=== PATIENT | female | born 1945 | race Caucasian/White ===

== ENCOUNTER → 2016-11-17 | Outpatient (REF) ==
[~2016-11-17] MED LIST: AMBIEN 10MG10 MG PO; AMERGE; CELEBREX 200MG200 MG PO; CELEBREX50 MG PO; COLACE 100100 MG/CAP PO; CYMBALTA 20MG20 MG PO; CYMBALTA 30MG30 MG PO; CYMBALTA 60MG60 MG PO; ENABLEX15 MG PO; EPA1000 MG PO; GAVISCON F1 TAB.CHEW PO; LAMICTAL 100MG100 MG PO; LAMICTAL ODT50 MG PO; LASIX 40MG TABL40 MG PO; LEVOXYL0.1 MG PO; LYRICA 100MG C100 M1 PO; LYRICA 50MG CAP50 MG PO; LYRICA100 MG PO; MULTIVITAMIN FO1 CAP PO; NORCO 325 MG-7.1 TAB PO; NS 10ML VIAL 1010 ML IV; OXY IR5 MG PO; PRILOSEC 10MG C10 MG PO; PRILOSEC 20MG20 MG PO; PRILOSEC10 MG; PRINIVIL20 MG PO; ROXICODONE 55 MG/TAB; SYNTHROID0.1 MG/TAB PO; SYNTHROID0.125 MG/T PO; TEFLARO 60600 MG/VIA IV; TIAZAC120 MG PO; TYLENOL 325MG325 MG PO; TYLENOL PM EXTR1 TA1 PO; [UNRECOGNIZED DRUG - CODE] IV
== END ==
LOC: ZLAB.WCH 11:06
DX: Z01.89 Encounter for other specified special examinations (principal)

== ENCOUNTER → 2017-03-08 | Outpatient (REF) | LOC: ZLAB.WCH 11:26 | DX: Z01.89 Encounter for other specified special examinations (principal) ==

== ENCOUNTER 2017-07-07 09:17 | Outpatient (CLI) | payer MEDICARE, OTHER ==
[~2017-07-07] VITALS: Ht 157.5 cm; Wt 118.6 kg
[~2017-07-07 09:17] MED LIST changes: -CYMBALTA 20MG20 MG PO; -LASIX 40MG TABL40 MG PO
[2017-07-07 10:32] VITALS: BP 151/54; PULSE 80; TEMP 97.3
[2017-07-07] MEDS ORDERED: CYMBALTA 20MG20 MG PO (11:01)
[2017-07-07] MEDS ORDERED: LASIX 40MG TABL40 MG PO (11:03)
== END 2017-07-07 11:00 | disposition home or self-care (01) ==
LOC: EUO 09:17
DX: L03.116 Cellulitis of left lower limb (principal); R06.02 Shortness of breath; R79.1 Abnormal coagulation profile
CPT/HCPCS: C1751; Q9967

== ENCOUNTER → 2017-07-08 | Outpatient (REF) ==
[~2017-07-08] MED LIST changes: +CYMBALTA 20MG20 MG PO; +LASIX 40MG TABL40 MG PO
== END ==
LOC: ZLAB.WCH 12:48
DX: Z01.89 Encounter for other specified special examinations (principal)

== ENCOUNTER → 2017-07-11 | Outpatient (REF) | LOC: ZAIV 06:00 | DX: Z02.89 Encounter for other administrative examinations (principal) ==

== ENCOUNTER → 2017-07-14 | Outpatient (CLI) | payer MEDICARE, OTHER | LOC: BHSO 09:58 | DX: F33.1 Major depressive disorder, recurrent, moderate (principal) ==

== ENCOUNTER → 2017-07-21 | Outpatient (REF) ==
[~2017-07-21] MED LIST changes: +AMERGE 2.5MG T2.5 MG PEG; +ASPIRIN 81M81 MG/TA2 PO; +BENADRYL25 M2 PO; +CEFEPIME2 GM/100 M IV; +CENTRUM 240 ML240 ML PO; -CYMBALTA 20MG20 MG PO; +DESENEX21 TOP; +DETROL LA4 PEG; +DITROPAN 5M5 MG/5 ML PO; +FIBERCON; +KEPPRA SUSP100 MG/ML PO; +LOVENOX 4040 MG/0.4 SQ; +MAG-OX 400400 MG/TAB PO; +MULTIVITAMIN1 CTB PO; +NORCO 325 MG-51 TAB PO; +NORCOELIX PO; +NORMAL SALINE F10 ML IV; +NORMAL SALINE FL5 ML IV; +NYSTATIN POWDER15 GM TOP; +PROTONIX I40 MG/VIAL IV; +PROTONIX40 MG/Pack PO; +PROZAC 20MG20 MG PO; +PROZAC 20MG4 MG/1 ML PO; +SLOW-MAG 6464 MG/TAB PEG; +SODIUM CHLORI1000 M1 IV; +TEMOVATE0.05% TP; +TYLENOL ELIX32 MG/M2 PO; +VANCOCIN H125 MG/CAP PEG; +VOLTAREN GEL 1%1 TU TP; +[UNRECOGNIZED DRUG - OTHER] TP
== END ==
LOC: ZLAB.WCH 21:00
DX: Z01.89 Encounter for other specified special examinations (principal)

== ENCOUNTER → 2017-07-23 | Outpatient (REF) ==
[~2017-07-23] MED LIST changes: -AMERGE 2.5MG T2.5 MG PEG; -ASPIRIN 81M81 MG/TA2 PO; -BENADRYL25 M2 PO; -CEFEPIME2 GM/100 M IV; -CENTRUM 240 ML240 ML PO; +CYMBALTA 20MG20 MG PO; -DESENEX21 TOP; -DETROL LA4 PEG; -DITROPAN 5M5 MG/5 ML PO; -FIBERCON; -KEPPRA SUSP100 MG/ML PO; -LOVENOX 4040 MG/0.4 SQ; -MAG-OX 400400 MG/TAB PO; -MULTIVITAMIN1 CTB PO; -NORCO 325 MG-51 TAB PO; -NORCOELIX PO; -NORMAL SALINE F10 ML IV; -NORMAL SALINE FL5 ML IV; -NYSTATIN POWDER15 GM TOP; -PROTONIX I40 MG/VIAL IV; -PROTONIX40 MG/Pack PO; -PROZAC 20MG20 MG PO; -PROZAC 20MG4 MG/1 ML PO; -SLOW-MAG 6464 MG/TAB PEG; -SODIUM CHLORI1000 M1 IV; -TEMOVATE0.05% TP; -TYLENOL ELIX32 MG/M2 PO; -VANCOCIN H125 MG/CAP PEG; -VOLTAREN GEL 1%1 TU TP; -[UNRECOGNIZED DRUG - OTHER] TP
== END ==
LOC: ZLAB.WCH 10:19
DX: Z01.89 Encounter for other specified special examinations (principal)

== ENCOUNTER → 2017-07-25 | Outpatient (REF) | LOC: ZLAB.WCH 10:35 | DX: Z01.89 Encounter for other specified special examinations (principal) ==

== ENCOUNTER → 2017-07-26 | Outpatient (REF) | LOC: ZLAB.WCH 11:05 | DX: Z01.89 Encounter for other specified special examinations (principal) ==

== ENCOUNTER → 2017-07-28 | Outpatient (REF) ==
[2017-07-28 19:12] LABS: VANCOMYCIN TROUGH 22.98 ug/mL (7.00-20.00)
[2017-07-28 19:45] LABS: CREATININE, serum 1.03 mg/dL (0.52-1.25)
== END ==
LOC: ZLAB.WCH 18:13
PROVIDERS: Nurse Practitioner Primary Care
DX: Z01.89 Encounter for other specified special examinations (principal)

== ENCOUNTER → 2017-07-31 | Outpatient (REF) | LOC: ZLAB.WCH 15:59 | DX: Z01.89 Encounter for other specified special examinations (principal) ==

== ENCOUNTER → 2017-08-03 | Outpatient (REF) ==
[2017-08-03 17:41] LABS: THYROID STIMULATING HORMONE 9.58 uIU/mL (0.465-4.680)
== END ==
LOC: ZLAB.WCH 15:44
DX: Z01.89 Encounter for other specified special examinations (principal)

== ENCOUNTER → 2017-10-02 | Outpatient (REF) | LOC: ZLAB.WCH 18:14 | DX: Z01.89 Encounter for other specified special examinations (principal) ==

== ENCOUNTER → 2018-01-26 | Outpatient (REF) ==
[2018-01-26 12:59] LABS: BASO # 0.1 (0.0-0.2); BASO % 0.6 % (0.0-2.0); EOS # 0.2 (0.0-0.7); EOS % 2.1 % (0-4.0); GRAN # 6.4 (1.4-6.5); GRAN % 75.4 % (42.2-75.2); LYMPH # 1.3 (1.2-3.4); LYMPH % 15.1 % (20.0-51.0); MEAN CELL VOLUME 86 fl (80.0-100.0); MEAN CORPUSCULAR HGB CONC 32 g/dl (33.0-37.0); MEAN PLATELET VOLUME 10.9 fl (7.4-10.4); MONO # 0.5 (0.1-0.6); MONO % 6.3 % (1.7-9.3); PLATELET COUNT 572 K/mm3 (130-400); RED BLOOD COUNT 3.03 M/mm3 (4.10-5.30); REDCELL DISTRIBUTION WIDTH-CV 15.8 % (11.5-14.5)
[2018-01-26 13:00] LABS: HEMATOCRIT 25.9 % (37.0-47.0); HEMOGLOBIN 8.4 g/dl (12.5-16.0); MEAN CORPUSCULAR HEMOGLOBIN 28 pg (27.0-31.0)
[2018-01-26 13:37] LABS: CALCIUM 9.1 mg/dL (8.4-10.2); CREATININE, serum 0.65 mg/dL (0.52-1.25); POTASSIUM 3.7 mmol/L (3.4-5.0)
== END ==
LOC: ZCOL.LAB 12:39
PROVIDERS: Internal Medicine
DX: K65.8 Other peritonitis (principal)

== ENCOUNTER → 2018-01-29 | Outpatient (CLI) | payer MEDICARE, OTHER ==
[2018-01-29 12:55] LABS: ALBUMIN 2.9 gm/dL (3.5-5.0); BILIRUBIN,TOTAL 0.3 mg/dL (0.0-1.0); CREATININE, serum 0.65 mg/dL (0.52-1.25); MAGNESIUM 1.4 mg/dL (1.6-2.3); PHOSPHOROUS 4.3 mg/dL (2.5-4.5); POTASSIUM 4.6 mmol/L (3.4-5.0); TOTAL PROTEIN 5.8 gm/dL (6.4-8.2)
== END ==
LOC: ZCOL.LAB 11:38
PROVIDERS: Internal Medicine
DX: R48.9 Unspecified symbolic dysfunctions (principal)

== ENCOUNTER 2018-02-01 19:29 | Emergency (ER) | payer MEDICARE, OTHER ==
[~2018-02-01] VITALS: Ht 157.5 cm; Wt 124.1 kg
[~2018-02-01 19:29] MED LIST changes: +CYMBALTA 20MG20 MG PEG; -CYMBALTA 20MG20 MG PO
[2018-02-01 19:34] VITALS: BP 123/99; PULSE 105; TEMP 97
[2018-02-01] MEDS ORDERED: ASPIRIN 81M81 MG/TA2 PEG (20:03)
[2018-02-01] MEDS ORDERED: DETROL LA4 PEG ×2 (20:04→21:52)
[2018-02-01] MEDS ORDERED: SLOW-MAG 6464 MG/TAB PEG (20:09)
[2018-02-01 20:36] LABS: BASO # 0.1 (0.0-0.2); BASO % 0.5 % (0.0-2.0); EOS # 0.5 (0.0-0.7); EOS % 4.3 % (0-4.0); GRAN # 9.4 (1.4-6.5); GRAN % 75.4 % (42.2-75.2); LYMPH # 1.7 (1.2-3.4); LYMPH % 13.5 % (20.0-51.0); MEAN CELL VOLUME 85 fl (80.0-100.0); MEAN CORPUSCULAR HGB CONC 33 g/dl (33.0-37.0); MEAN PLATELET VOLUME 9.9 fl (7.4-10.4); MONO # 0.7 (0.1-0.6); PLATELET COUNT 746 K/mm3 (130-400); RED BLOOD COUNT 3.54 M/mm3 (4.10-5.30); REDCELL DISTRIBUTION WIDTH-CV 16.8 % (11.5-14.5)
[2018-02-01 20:38] LABS: HEMATOCRIT 30.2 % (37.0-47.0); HEMOGLOBIN 9.8 g/dl (12.5-16.0); MEAN CORPUSCULAR HEMOGLOBIN 28 pg (27.0-31.0)
[2018-02-01 20:46] LABS: ALBUMIN 3.5 gm/dL (3.5-5.0); BILIRUBIN,TOTAL 0.5 mg/dL (0.0-1.0); CALCIUM 9.8 mg/dL (8.4-10.2); CREATININE, serum 0.95 mg/dL (0.52-1.25); MAGNESIUM 1.7 mg/dL (1.6-2.3); PHOSPHOROUS 5.8 mg/dL (2.5-4.5); POTASSIUM 4.5 mmol/L (3.4-5.0); TOTAL PROTEIN 7.2 gm/dL (6.4-8.2)
[2018-02-01] MEDS ORDERED: KEPPRA 500MG500 MG PO (21:46)
[2018-02-01] MEDS ORDERED: VANCOCIN H125 MG/CAP PEG (21:48)
[2018-02-01] MEDS ORDERED: AMERGE 2.5MG T2.5 MG PEG (21:49)
[2018-02-01] MEDS ORDERED: TEMOVATE0.05% TP (21:50)
[2018-02-01] MEDS ORDERED: [UNRECOGNIZED DRUG - OTHER] TP (21:51)
[2018-02-01] MEDS ORDERED: VOLTAREN GEL 1%1 TU TP (21:53)
[2018-02-01] MEDS ORDERED: BENADRYL25 M2 PO (21:54)
[2018-02-01] MEDS ORDERED: NYSTATIN POWDER15 GM TOP (21:59)
[2018-02-01] MEDS ORDERED: MULTIVITAMIN1 CTB PO (21:59)
[2018-02-01] MEDS ORDERED: PROZAC 20MG20 MG PO (21:59)
[2018-02-01] MEDS ORDERED: NORCO 325 MG-51 TAB PO (23:13)
== END 2018-02-01 23:45 | disposition home or self-care (01) ==
LOC: COL.ER 19:29
PROVIDERS: Emergency Medicine
DX: K94.13 Enterostomy malfunction (principal); I10 Essential (primary) hypertension; L40.9 Psoriasis, unspecified; Z79.82 Long term (current) use of aspirin
CPT/HCPCS: J3010

== ENCOUNTER → 2018-02-02 | Outpatient (REF) ==
[~2018-02-02] MED LIST changes: +AMERGE 2.5MG T2.5 MG PEG; +ASPIRIN 81M81 MG/TA2 PEG; +BENADRYL25 M2 PO; +DETROL LA4 PEG; +KEPPRA 500MG500 MG PO; +MULTIVITAMIN1 CTB PO; +NORCO 325 MG-51 TAB PO; +NYSTATIN POWDER15 GM TOP; +PROZAC 20MG20 MG PO; +SLOW-MAG 6464 MG/TAB PEG; +TEMOVATE0.05% TP; +VANCOCIN H125 MG/CAP PEG; +VOLTAREN GEL 1%1 TU TP; +[UNRECOGNIZED DRUG - OTHER] TP
[2018-02-02 16:34] LABS: BASO # 0.1 (0.0-0.2); BASO % 0.7 % (0.0-2.0); EOS % 12.2 % (0-4.0); GRAN # 5.1 (1.4-6.5); GRAN % 61.4 % (42.2-75.2); LYMPH # 1.4 (1.2-3.4); LYMPH % 17.1 % (20.0-51.0); MEAN CELL VOLUME 87 fl (80.0-100.0); MEAN CORPUSCULAR HGB CONC 32 g/dl (33.0-37.0); MEAN PLATELET VOLUME 10.3 fl (7.4-10.4); MONO # 0.7 (0.1-0.6); MONO % 8.2 % (1.7-9.3); PLATELET COUNT 683 K/mm3 (130-400); RED BLOOD COUNT 3.48 M/mm3 (4.10-5.30); REDCELL DISTRIBUTION WIDTH-CV 16.8 % (11.5-14.5)
[2018-02-02 16:35] LABS: HEMATOCRIT 30.3 % (37.0-47.0); HEMOGLOBIN 9.7 g/dl (12.5-16.0); MEAN CORPUSCULAR HEMOGLOBIN 28 pg (27.0-31.0)
[2018-02-02 16:57] LABS: ALBUMIN 3.1 gm/dL (3.5-5.0); BILIRUBIN,TOTAL 0.3 mg/dL (0.0-1.0); CALCIUM 9.6 mg/dL (8.4-10.2); CREATININE, serum 0.86 mg/dL (0.52-1.25); MAGNESIUM 1.8 mg/dL (1.6-2.3); POTASSIUM 4.9 mmol/L (3.4-5.0); TOTAL PROTEIN 6.4 gm/dL (6.4-8.2)
== END ==
LOC: ZCOL.LAB 16:28
PROVIDERS: Internal Medicine
DX: K56.0 Paralytic ileus (principal)

== ENCOUNTER → 2018-02-05 | Outpatient (REF) ==
[2018-02-05 14:46] LABS: BASO # 0.1 (0.0-0.2); BASO % 0.8 % (0.0-2.0); EOS # 1.1 (0.0-0.7); GRAN # 5.8 (1.4-6.5); GRAN % 67.4 % (42.2-75.2); MEAN CELL VOLUME 87 fl (80.0-100.0); MEAN CORPUSCULAR HGB CONC 32 g/dl (33.0-37.0); MEAN PLATELET VOLUME 11.1 fl (7.4-10.4); MONO # 0.6 (0.1-0.6); MONO % 6.6 % (1.7-9.3); PLATELET COUNT 623 K/mm3 (130-400); RED BLOOD COUNT 3.49 M/mm3 (4.10-5.30); REDCELL DISTRIBUTION WIDTH-CV 16.3 % (11.5-14.5)
[2018-02-05 14:48] LABS: HEMATOCRIT 30.4 % (37.0-47.0); HEMOGLOBIN 9.7 g/dl (12.5-16.0); MEAN CORPUSCULAR HEMOGLOBIN 28 pg (27.0-31.0)
[2018-02-05 15:13] LABS: ALBUMIN 3.2 gm/dL (3.5-5.0); BILIRUBIN,TOTAL 0.2 mg/dL (0.0-1.0); CALCIUM 9.9 mg/dL (8.4-10.2); CREATININE, serum 0.85 mg/dL (0.52-1.25); MAGNESIUM 1.8 mg/dL (1.6-2.3); PHOSPHOROUS 5.5 mg/dL (2.5-4.5); POTASSIUM 4.8 mmol/L (3.4-5.0); TOTAL PROTEIN 6.4 gm/dL (6.4-8.2)
[2018-02-05 15:43] LABS: THYROID STIMULATING HORMONE 17.8 uIU/mL (0.465-4.680)
== END ==
LOC: ZCOL.LAB 14:40
PROVIDERS: Internal Medicine
DX: A04.72 Enterocolitis due to Clostridium difficile, not specified as recurrent (principal)

== ENCOUNTER → 2018-02-07 | Outpatient (REF) | LOC: ZCOL.LAB 19:58 | DX: A04.72 Enterocolitis due to Clostridium difficile, not specified as recurrent (principal) ==

== ENCOUNTER → 2018-02-12 | Outpatient (REF) ==
[2018-02-12 12:05] LABS: CALCIUM 9.9 mg/dL (8.4-10.2); CREATININE, serum 0.93 mg/dL (0.52-1.25); MAGNESIUM 1.8 mg/dL (1.6-2.3); PHOSPHOROUS 5.3 mg/dL (2.5-4.5); POTASSIUM 4.7 mmol/L (3.4-5.0)
== END ==
LOC: ZCOL.LAB 11:46
PROVIDERS: Internal Medicine
DX: K21.9 Gastro-esophageal reflux disease without esophagitis (principal); R56.9 Unspecified convulsions; I10 Essential (primary) hypertension

== ENCOUNTER → 2018-02-19 | Outpatient (REF) ==
[2018-02-19 07:54] LABS: BASO # 0.1 (0.0-0.2); BASO % 0.6 % (0.0-2.0); EOS # 0.5 (0.0-0.7); EOS % 6.5 % (0-4.0); GRAN # 5.5 (1.4-6.5); GRAN % 68.4 % (42.2-75.2); LYMPH # 1.5 (1.2-3.4); MEAN CELL VOLUME 83 fl (80.0-100.0); MEAN CORPUSCULAR HGB CONC 33 g/dl (33.0-37.0); MEAN PLATELET VOLUME 10.1 fl (7.4-10.4); MONO # 0.5 (0.1-0.6); PLATELET COUNT 325 K/mm3 (130-400); RED BLOOD COUNT 3.83 M/mm3 (4.10-5.30); REDCELL DISTRIBUTION WIDTH-CV 15.3 % (11.5-14.5)
[2018-02-19 07:58] LABS: HEMATOCRIT 31.8 % (37.0-47.0); HEMOGLOBIN 10.5 g/dl (12.5-16.0); MEAN CORPUSCULAR HEMOGLOBIN 27 pg (27.0-31.0)
[2018-02-19 08:06] LABS: ALBUMIN 3.1 gm/dL (3.5-5.0); BILIRUBIN,TOTAL 0.2 mg/dL (0.0-1.0); CALCIUM 10.7 mg/dL (8.4-10.2); CREATININE, serum 0.86 mg/dL (0.52-1.25); PHOSPHOROUS 5.2 mg/dL (2.5-4.5); POTASSIUM 4.6 mmol/L (3.4-5.0); TOTAL PROTEIN 6.3 gm/dL (6.4-8.2)
== END ==
LOC: ZCOL.LAB 07:45
PROVIDERS: Internal Medicine
DX: A41.9 Sepsis, unspecified organism (principal)

== ENCOUNTER → 2018-02-26 | Outpatient (REF) ==
[~2018-02-26] MED LIST changes: +FIBERCON
[2018-02-26 13:08] LABS: BASO % 0.2 % (0.0-2.0); EOS # 0.3 (0.0-0.7); EOS % 3.1 % (0-4.0); GRAN # 8.7 (1.4-6.5); GRAN % 81.8 % (42.2-75.2); HEMOGLOBIN 10.8 g/dl (12.5-16.0); LYMPH % 9.5 % (20.0-51.0); MEAN CELL VOLUME 81 fl (80.0-100.0); MEAN CORPUSCULAR HEMOGLOBIN 27 pg (27.0-31.0); MEAN CORPUSCULAR HGB CONC 34 g/dl (33.0-37.0); MEAN PLATELET VOLUME 10.4 fl (7.4-10.4); MONO # 0.6 (0.1-0.6); MONO % 5.2 % (1.7-9.3); PLATELET COUNT 479 K/mm3 (130-400); RED BLOOD COUNT 3.93 M/mm3 (4.10-5.30); REDCELL DISTRIBUTION WIDTH-CV 15.2 % (11.5-14.5)
[2018-02-26 13:28] LABS: ALBUMIN 3.4 gm/dL (3.5-5.0); BILIRUBIN,TOTAL 0.4 mg/dL (0.0-1.0); CALCIUM 10.9 mg/dL (8.4-10.2); CREATININE, serum 0.88 mg/dL (0.52-1.25); MAGNESIUM 1.5 mg/dL (1.6-2.3); PHOSPHOROUS 4.9 mg/dL (2.5-4.5); TOTAL PROTEIN 6.9 gm/dL (6.4-8.2)
== END ==
LOC: ZCOL.LAB 13:01
PROVIDERS: Internal Medicine
DX: A41.9 Sepsis, unspecified organism (principal)

== ENCOUNTER 2018-03-02 10:03 | Inpatient (IN) | payer MEDICARE, OTHER ==
[~2018-03-02] VITALS: Ht 157.5 cm; Wt 94.0 kg
[~2018-03-02 10:03] MED LIST changes: -ASPIRIN 81M81 MG/TA2 PEG; +ASPIRIN 81M81 MG/TA2 PO; -CYMBALTA 20MG20 MG PEG; -KEPPRA 500MG500 MG PO; +KEPPRA SUSP100 MG/ML PO
[2018-03-02] MEDS ORDERED: CEFEPIME2 GM/100 M IV (12:58)
[2018-03-02] MEDS ORDERED: DITROPAN 5M5 MG/5 ML PO (13:38)
[2018-03-02] MEDS ORDERED: CENTRUM 240 ML240 ML PO (14:24)
[2018-03-02] MEDS ORDERED: PROTONIX I40 MG/VIAL IV (14:29)
[2018-03-02] MEDS ORDERED: NORCOELIX PO (14:37)
[2018-03-02] MEDS ORDERED: TYLENOL ELIX32 MG/M2 PO (14:39)
[2018-03-02] MEDS ORDERED: NORMAL SALINE F10 ML IV (14:49)
[2018-03-02] MEDS ORDERED: NORMAL SALINE FL5 ML IV (14:50)
[2018-03-02] MEDS ORDERED: DESENEX21 TOP (14:55)
[2018-03-02] MEDS ORDERED: LOVENOX 4040 MG/0.4 SQ (14:59)
[2018-03-02] MEDS ORDERED: SODIUM CHLORI1000 M1 IV (15:03)
[2018-03-02 16:55] VITALS: BP 123/50; PULSE 80; TEMP 96.4
[2018-03-02 18:56] VITALS: TEMP 97.2
[2018-03-03 05:41] VITALS: BP 122/45; PULSE 88; TEMP 98.6
[2018-03-03 16:17] VITALS: BP 125/70; PULSE 82; TEMP 99
[2018-03-04 06:11] VITALS: BP 126/54; PULSE 76; TEMP 98.1
[2018-03-04 16:00] VITALS: BP 119/43; PULSE 79; TEMP 97.4
[2018-03-05 04:07] VITALS: BP 149/61; PULSE 82; TEMP 97.6
[2018-03-05 06:08] LABS: EOS % 0.2 % (0-4.0); GRAN # 4.4 (1.4-6.5); LYMPH # 0.5 (1.2-3.4); MEAN CELL VOLUME 83 fl (80.0-100.0); MEAN CORPUSCULAR HGB CONC 33 g/dl (33.0-37.0); MEAN PLATELET VOLUME 9.9 fl (7.4-10.4); MONO # 0.1 (0.1-0.6); MONO % 2.2 % (1.7-9.3); PLATELET COUNT 404 K/mm3 (130-400); RED BLOOD COUNT 3.49 M/mm3 (4.10-5.30); REDCELL DISTRIBUTION WIDTH-CV 15.8 % (11.5-14.5)
[2018-03-05 06:20] LABS: CALCIUM 10.1 mg/dL (8.4-10.2); CREATININE, serum 0.68 mg/dL (0.52-1.25); MAGNESIUM 1.3 mg/dL (1.6-2.3); POTASSIUM 3.8 mmol/L (3.4-5.0)
[2018-03-05 06:23] LABS: HEMATOCRIT 28.9 % (37.0-47.0); HEMOGLOBIN 9.4 g/dl (12.5-16.0); MEAN CORPUSCULAR HEMOGLOBIN 27 pg (27.0-31.0)
[2018-03-05 14:58] VITALS: BP 138/56; PULSE 77; TEMP 97.4
[2018-03-06 07:49] VITALS: BP 137/71; PULSE 83; TEMP 97.3
[2018-03-06 16:39] VITALS: BP 142/58; PULSE 74; TEMP 97.4
[2018-03-07 05:42] VITALS: BP 120/45; PULSE 77; TEMP 97.6
[2018-03-07 15:21] VITALS: BP 128/64; PULSE 62; TEMP 97.4
[2018-03-08 05:27] VITALS: BP 129/57; PULSE 76; TEMP 98.4
[2018-03-08 06:37] LABS: CALCIUM 9.6 mg/dL (8.4-10.2); CREATININE, serum 0.87 mg/dL (0.52-1.25); POTASSIUM 3.4 mmol/L (3.4-5.0)
[2018-03-08 16:50] VITALS: BP 117/48; PULSE 93; TEMP 97.7
[2018-03-09 06:48] VITALS: BP 107/45; PULSE 79; TEMP 97.7
[2018-03-09 16:04] VITALS: BP 124/52; PULSE 83; TEMP 98
[2018-03-10 06:00] VITALS: BP 153/68; PULSE 50; TEMP 97.4
[2018-03-10 17:05] VITALS: BP 128/44; PULSE 73; TEMP 98.1
[2018-03-10 22:45] LABS: CREATININE, serum 0.76 mg/dL (0.52-1.25)
[2018-03-10 22:50] LABS: VANCOMYCIN TROUGH 19.3 ug/mL (7.00-20.00)
[2018-03-11 06:00] VITALS: BP 161/57; PULSE 68; TEMP 97.8
[2018-03-11 15:42] VITALS: BP 119/44; PULSE 79; TEMP 97.8
[2018-03-12 05:25] VITALS: BP 152/63; PULSE 80; TEMP 98.4
[2018-03-12 17:56] VITALS: BP 127/45; PULSE 80; TEMP 98.1
[2018-03-13 06:00] VITALS: BP 145/49; PULSE 71; TEMP 97.4
[2018-03-13 15:24] VITALS: BP 121/46; PULSE 70; TEMP 97.5
[2018-03-14 05:02] VITALS: BP 152/59; PULSE 77; TEMP 97.6
[2018-03-14 06:57] LABS: CALCIUM 8.2 mg/dL (8.4-10.2); CREATININE, serum 0.83 mg/dL (0.52-1.25); MAGNESIUM 1.2 mg/dL (1.6-2.3); POTASSIUM 3.4 mmol/L (3.4-5.0)
[2018-03-14 16:34] VITALS: BP 119/48; PULSE 61; TEMP 97.5
[2018-03-15 04:46] VITALS: BP 161/54; PULSE 75; TEMP 97.5
[2018-03-15 17:32] VITALS: BP 133/42; PULSE 78; TEMP 97.5
[2018-03-16 06:11] VITALS: BP 139/59; PULSE 70; TEMP 98.6
[2018-03-16 06:38] LABS: CALCIUM 8.5 mg/dL (8.4-10.2); CREATININE, serum 0.73 mg/dL (0.52-1.25); MAGNESIUM 1.8 mg/dL (1.6-2.3); POTASSIUM 4.2 mmol/L (3.4-5.0)
[2018-03-16 16:23] VITALS: BP 124/51; PULSE 75; TEMP 97.6
[2018-03-17 04:41] VITALS: BP 131/46; PULSE 67; TEMP 97.2
[2018-03-17 16:35] VITALS: BP 124/41; PULSE 75; TEMP 97.8
[2018-03-18 05:00] VITALS: BP 133/44; PULSE 71; TEMP 97.8
[2018-03-18 15:53] VITALS: BP 104/42; PULSE 88; TEMP 97.9
[2018-03-19 05:37] VITALS: BP 121/40; PULSE 76; TEMP 98
[2018-03-19 16:33] VITALS: BP 114/39; PULSE 75; TEMP 98.7
[2018-03-20 05:52] VITALS: BP 137/42; PULSE 70; TEMP 97.6
[2018-03-20 15:26] VITALS: BP 117/45; PULSE 78; TEMP 98.4
[2018-03-21 05:38] VITALS: BP 133/41; PULSE 73; TEMP 97.6
[2018-03-21] MEDS ORDERED: PROZAC 20MG4 MG/1 ML PO (07:33)
[2018-03-21] MEDS ORDERED: PROTONIX40 MG/Pack PO (07:35)
[2018-03-21] MEDS ORDERED: MAG-OX 400400 MG/TAB PO (07:36)
[2018-03-21] MEDS ORDERED: NORCOELIX PO (07:40)
[2018-03-21 14:53] VITALS: BP 119/44; PULSE 72; TEMP 97.5
[2018-03-22 05:45] VITALS: BP 155/54; PULSE 70; TEMP 98.2
== END 2018-03-22 14:00 | disposition home health service (06) | DRG 92 ==
PROVIDERS: Family Medicine; Internal Medicine
PROC: 02HV33Z Insertion of Infusion Device into Superior Vena Cava, Percutaneous Approach (ICD-10-PCS; principal; 2018-03-07)
DX: G72.81 Critical illness myopathy (principal); N39.0 Urinary tract infection, site not specified; E87.1 Hypo-osmolality and hyponatremia; E27.40 Unspecified adrenocortical insufficiency; B96.20 Unspecified Escherichia coli [E. coli] as the cause of diseases classified elsewhere; E87.5 Hyperkalemia; E86.0 Dehydration; G62.9 Polyneuropathy, unspecified; M17.12 Unilateral primary osteoarthritis, left knee; Z93.2 Ileostomy status; E83.42 Hypomagnesemia; B95.2 Enterococcus as the cause of diseases classified elsewhere; T81.4XXD Infection following a procedure, subsequent encounter
CPT/HCPCS: 99222-AI; 99232-AI; 99239; C1751; J0692; J0744; J1200; J1644; J1650; J3301; J3370; J3475; J7050; J7512

== ENCOUNTER → 2018-03-26 | Outpatient (REF) ==
[~2018-03-26] MED LIST changes: +CEFEPIME2 GM/100 M IV; +CENTRUM 240 ML240 ML PO; +DESENEX21 TOP; +DITROPAN 5M5 MG/5 ML PO; +LOVENOX 4040 MG/0.4 SQ; +MAG-OX 400400 MG/TAB PO; +NORCOELIX PO; +NORMAL SALINE F10 ML IV; +NORMAL SALINE FL5 ML IV; +PROTONIX I40 MG/VIAL IV; +PROTONIX40 MG/Pack PO; +PROZAC 20MG4 MG/1 ML PO; +SODIUM CHLORI1000 M1 IV; +TYLENOL ELIX32 MG/M2 PO
[2018-03-26 18:47] LABS: THYROID STIMULATING HORMONE 6.13 uIU/mL (0.465-4.680)
== END ==
LOC: ZLAB.WCH 17:59
PROVIDERS: Internal Medicine
DX: Z01.89 Encounter for other specified special examinations (principal)

== ENCOUNTER → 2018-06-20 | Outpatient (REF) ==
[2018-06-20 16:52] LABS: THYROID STIMULATING HORMONE 2.59 uIU/mL (0.465-4.680)
== END ==
LOC: ZLAB.WCH 15:59
PROVIDERS: Internal Medicine
DX: Z01.89 Encounter for other specified special examinations (principal)

== ENCOUNTER → 2018-08-21 | Outpatient (REF) ==
[2018-08-21 17:02] LABS: THYROID STIMULATING HORMONE 0.328 uIU/mL (0.465-4.680)
== END ==
LOC: ZLAB.WCH 16:09
PROVIDERS: Internal Medicine
DX: Z01.89 Encounter for other specified special examinations (principal)

== ENCOUNTER → 2018-09-21 | Outpatient (REF) | LOC: ZLAB.WCH 18:14 | DX: Z01.89 Encounter for other specified special examinations (principal) ==

== ENCOUNTER → 2018-11-20 | Outpatient (REF) ==
[2018-11-20 17:48] LABS: IRON,SERUM 92 ug/dL (35-150)
[2018-11-20 17:58] LABS: TOTAL IRON BINDING CAPACITY 292 ug/dL (265-497)
[2018-11-20 18:28] LABS: FERRITIN 87 ng/mL (11-264)
== END ==
LOC: ZLAB.WCH 17:11
PROVIDERS: Internal Medicine
DX: Z01.89 Encounter for other specified special examinations (principal)

== ENCOUNTER → 2019-01-18 | Outpatient (REF) ==
[2019-01-18 17:44] LABS: THYROID STIMULATING HORMONE 0.996 uIU/mL (0.465-4.680)
== END ==
LOC: ZLAB.WCH 16:51
PROVIDERS: Internal Medicine
DX: Z01.89 Encounter for other specified special examinations (principal)